=== PATIENT | female | born 1965 | race Caucasian/White ===

== ENCOUNTER 2018-09-23 18:27 | Emergency (ER) | payer MEDICAID ==
[~2018-09-23] VITALS: Ht 175.3 cm; Wt 128.8 kg
[2018-09-23 18:40] VITALS: Ht 175.3 cm; Wt 128.8 kg
[2018-09-23 20:31] VITALS: BP 129/96
== END 2018-09-23 20:31 | disposition home or self-care (01) ==
LOC: ED 18:27
DX: H10.9 Unspecified conjunctivitis (principal); J06.9 Acute upper respiratory infection, unspecified